=== PATIENT | male | born 2005 | race Caucasian/White ===

== ENCOUNTER 2023-02-21 21:59 | Emergency (ER) | payer OTHER, SELFPAY ==
[2023-02-21 22:16] VITALS: BP 145/89; PULSE 97; RESP 16; O2SAT 98; BMI 25.3
--- NOTE | 2023-02-21 22:24 | ED.ANXIETY1 ---
HPI - Anxiety General Chief Complaint: Anxiety Stated Complaint: ANXIETY Time Seen by Provider: 02/21/23 22:24 Source: patient Mode of arrival: walk-in History of Present Illness HPI narrative: patient's coming to the Emergency Room for concern of suicidal thoughts he have history of depression taking Lexapro but he mentioned that over the last few days if not helping him, the patient does not have any clear plan at the moment , has has falt affect and denies any other complaints pt mentioned his medciation not helping Review of systems otherwise negative Related Data Home Medications Medication Instructions Recorded Confirmed escitalopram oxalate 20 mg tablet 20 mg PO DAILY 02/21/23 02/21/23 (Lexapro) Allergies Allergy/AdvReac Type Severity Reaction Status Date / Time No Known Drug Allergies Allergy Verified 02/21/23 22:21 Review of Systems ROS Status of ROS 10 or more systems reviewed and unremarkable except as noted in history and below PFS PFS Social History Smoking status: Current every day smoker Exam Narrative Exam Narrative: Nurses notes and vital signs reviewed and patient is not hypoxic. General: Well-appearing and in no apparent distress. Skin: Warm, dry, no pallor noted. No rash. Head: Normocephalic, atraumatic. Neck: Supple, non-tender. Eye: Pupils are equal, round and EOMI. No scleral icterus. Ears, Nose, Mouth, and Throat: TM are clear, no nasal mucosal hypertrophy. Oral mucosa is moist, no posterior oropharynx erythema, uvula is mid-line Cardiovascular: Regular Rate and Rhythm without murmur, gallop or rub. Respiratory: No accessory muscle use or respiratory distress. Lungs are clear to auscultation, no wheezing, rales or rhonchi Chest Wall: no tenderness Back: No midline thoracic or lumbar vertebral tenderness. No CVA tenderness Musculoskeletal: normal ROM, no calf or popliteal tenderness, no lower extremity edema/swelling GI: Abdomen is soft, non-distended. Normal bowel sounds. No masses appreciated. No tenderness to palpation. No rebound, guarding, or rigidity noted. Neurological: A&O x4. No cranial nerve dysfunction observed. No truncal ataxia. Moves all extremities. Sensation intact. Psychiatric: Cooperative and interactive. Normal mood and affect. Constitutional Vital Signs - 24 hr 02/21/23 22:16 Pulse Rate [Monitor] 97 H Respiratory Rate 16 Blood Pressure [Right Arm] 145/89 H Pulse Oximetry 98 Oxygen Delivery Method Room Air Course Vital Signs Vital signs: Vital Signs Pulse Rate 97 H 02/21/23 22:16 Respiratory Rate 16 02/21/23 22:16 Blood Pressure 145/89 H 02/21/23 22:16 Pulse Oximetry 98 02/21/23 22:16 Oxygen Delivery Method Room Air 02/21/23 22:16 Pulse Rate 97 H 02/21/23 22:16 Respiratory Rate 16 02/21/23 22:16 Blood Pressure 145/89 H 02/21/23 22:16 Pulse Oximetry 98 02/21/23 22:16 Oxygen Delivery Method Room Air 02/21/23 22:16 MDM - Anxiety MDM Narrative Medical decision making narrative: EKG showing sinus rhythm no ST elevation or depression pt blood work up with no acute significant pathology and his alcohol level is above two hundred Right now the patient was evaluated by [facility] psych service and accepted by Dr Vigil to be admitted for Major depression disorder pt has sitter at the bedside and awaiting transport Lab Data Labs: Lab Results 02/21/23 02/21/23 02/22/23 Range/Units 22:10 22:31 01:16 WBC 6.8 (4.0-11.0) 10^3/uL RBC 4.93 (4.70-6.10) 10^6/uL Hgb 15.6 (14.0-18.0) g/dL Hct 45.1 (42.0-54.0) % MCV 91.5 (80.0-94.0) fL MCH 31.6 (25.9-34.0) pg MCHC 34.6 (29.9-35.2) g/dL RDW 12.0 (11.0-15.0) % Plt Count 340 (150-450) 10^3/uL MPV 9.6 (9.5-13.5) fL Neut % (Auto) 43.3 (43.0-75.0) % Lymph % (Auto) 42.4 (20.5-60.0) % [place] % (Auto) 8.7 (1.7-12.0) % Eos % (Auto) 4.6 (0.9-7.0) % Baso % (Auto) 0.7 (0.2-2.0) % Neut # (Auto) 3.0 (1.4-6.5) 10^3/uL Lymph # (Auto) 2.9 (1.2-3.8) 10^3/uL [place] # (Auto) 0.6 (0.3-0.8) 10^3/uL Eos # (Auto) 0.3 (0.0-0.7) 10^3/uL Baso # (Auto) 0.1 (0.0-0.1) 10^3/uL Abs Immat Gran (auto) 0.02 (0.00-0.03) 10^3/uL Imm/Tot Granulo (auto) 0.3 (0.0-0.5) % Sodium 138 (136-145) mmol/L Potassium 3.7 (3.5-5.1) mmol/L Chloride 99 (98-107) mmol/L Carbon Dioxide 29.1 (21.0-32.0) mmol/L Anion Gap 13.6 BUN 10.0 (6.4-19.3) mg/dL Creatinine 0.90 (0.70-1.30) mg/dL Est GFR ( Amer) >60 (>=60) Est GFR (Non-Af Amer) >60 (>=60) BUN/Creatinine Ratio 11.1 Glucose 82 (74-106) mg/dL Calcium 9.2 (8.5-10.1) mg/dL Total Bilirubin 0.2 (0.2-1.0) mg/dL AST 59 H (15-37) U/L ALT 96 H (16-63) U/L Alkaline Phosphatase 52 (46-116) U/L Total Protein 8.7 H (6.4-8.2) g/dL Albumin 4.5 (3.4-5.0) g/dL Globulin 4.2 g/dL Albumin/Globulin Ratio 1.1 Salicylates <2.8 (<=19.9) mg/dL Urine Opiates Screen Negative (NEGATIVE) Ur Buprenorphine Scrn Negative (NEGATIVE) Ur Oxycodone Screen Negative (NEGATIVE) Urine Methadone Screen Negative (NEGATIVE) Ur Propoxyphene Screen Negative (NEGATIVE) Acetaminophen <10.0 L (10.0-30.0) ug/mL Ur Barbiturates Screen Negative (NEGATIVE) U Tricyclic Antidepress Negative (NEGATIVE) Ur Phencyclidine Scrn Negative (NEGATIVE) Ur Amphetamines Screen Negative (NEGATIVE) U Methamphetamines Scrn Negative (NEGATIVE) U Benzodiazepines Scrn Negative (NEGATIVE) Urine Cocaine Screen Negative (NEGATIVE) U Cannabinoids Screen Negative (NEGATIVE) Ethanol Quant 205 146 mg/dL 02/22/23 Range/Units 03:09 WBC (4.0-11.0) 10^3/uL RBC (4.70-6.10) 10^6/uL Hgb (14.0-18.0) g/dL Hct (42.0-54.0) % MCV (80.0-94.0) fL MCH (25.9-34.0) pg MCHC (29.9-35.2) g/dL RDW (11.0-15.0) % Plt Count (150-450) 10^3/uL MPV (9.5-13.5) fL Neut % (Auto) (43.0-75.0) % Lymph % (Auto) (20.5-60.0) % [place] % (Auto) (1.7-12.0) % Eos % (Auto) (0.9-7.0) % Baso % (Auto) (0.2-2.0) % Neut # (Auto) (1.4-6.5) 10^3/uL Lymph # (Auto) (1.2-3.8) 10^3/uL [place] # (Auto) (0.3-0.8) 10^3/uL Eos # (Auto) (0.0-0.7) 10^3/uL Baso # (Auto) (0.0-0.1) 10^3/uL Abs Immat Gran (auto) (0.00-0.03) 10^3/uL Imm/Tot Granulo (auto) (0.0-0.5) % Sodium (136-145) mmol/L Potassium (3.5-5.1) mmol/L Chloride (98-107) mmol/L Carbon Dioxide (21.0-32.0) mmol/L Anion Gap BUN (6.4-19.3) mg/dL Creatinine (0.70-1.30) mg/dL Est GFR ( Amer) (>=60) Est GFR (Non-Af Amer) (>=60) BUN/Creatinine Ratio Glucose (74-106) mg/dL Calcium (8.5-10.1) mg/dL Total Bilirubin (0.2-1.0) mg/dL AST (15-37) U/L ALT (16-63) U/L Alkaline Phosphatase (46-116) U/L Total Protein (6.4-8.2) g/dL Albumin (3.4-5.0) g/dL Globulin g/dL Albumin/Globulin Ratio Salicylates (<=19.9) mg/dL Urine Opiates Screen (NEGATIVE) Ur Buprenorphine Scrn (NEGATIVE) Ur Oxycodone Screen (NEGATIVE) Urine Methadone Screen (NEGATIVE) Ur Propoxyphene Screen (NEGATIVE) Acetaminophen (10.0-30.0) ug/mL Ur Barbiturates Screen (NEGATIVE) U Tricyclic Antidepress (NEGATIVE) Ur Phencyclidine Scrn (NEGATIVE) Ur Amphetamines Screen (NEGATIVE) U Methamphetamines Scrn (NEGATIVE) U Benzodiazepines Scrn (NEGATIVE) Urine Cocaine Screen (NEGATIVE) U Cannabinoids Screen (NEGATIVE) Ethanol Quant 84 mg/dL Discharge Plan Discharge Chief Complaint: Anxiety Clinical Impression: Major depressive disorder, Suicidal ideation Patient Disposition: [facility] Time of Disposition Decision: 02:39 Discharge Location: [facility] Discharge location: Psychatric service Condition: Good Mode of Transportation: EMS
--- NOTE | 2023-02-21 22:26 | ECG_ITS ---
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
[2023-02-21 22:49] LABS: Basophils Absolute Auto 0.1 10^3/uL (0.0-0.1); Basophils Percent Auto 0.7 % (0.2-2.0); Eosinophils Absolute Auto 0.3 10^3/uL (0.0-0.7); Eosinophils Percent Auto 4.6 % (0.9-7.0); Hematocrit 45.1 % (42.0-54.0); Hemoglobin 15.6 g/dL (14.0-18.0); Immature Granulocytes Abs Auto 0.02 10^3/uL (0.00-0.03); Immature Granulocytes Pct Auto 0.3 % (0.0-0.5); Lymphocytes Absolute Auto 2.9 10^3/uL (1.2-3.8); Lymphocytes Percent Auto 42.4 % (20.5-60.0); Mean Corpuscular HGB Conc 34.6 g/dL (29.9-35.2); Mean Corpuscular Hemoglobin 31.6 pg (25.9-34.0); Mean Corpuscular Volume 91.5 fL (80.0-94.0); Mean Platelet Volume 9.6 fL (9.5-13.5); Monocytes Absolute Auto 0.6 10^3/uL (0.3-0.8); Monocytes Percent Auto 8.7 % (1.7-12.0); Neutrophils Percent Auto 43.3 % (43.0-75.0); Platelet Count 340 10^3/uL (150-450); Red Blood Count 4.93 10^6/uL (4.70-6.10); White Blood Count 6.8 10^3/uL (4.0-11.0)
[2023-02-21 23:01] LABS: Amphetamine Screen Urine NEGATIVE (NEGATIVE); Barbiturates Screen Urine NEGATIVE (NEGATIVE); Benzodiazepines Screen Urine NEGATIVE (NEGATIVE); Buprenorphine Screen Urine NEGATIVE (NEGATIVE); Cannabinoid Screen Urine NEGATIVE (NEGATIVE); Cocaine Screen Urine NEGATIVE (NEGATIVE); Methadone Screen Urine NEGATIVE (NEGATIVE); Methamphetamines Screen Urine NEGATIVE (NEGATIVE); Opiate Screen Urine NEGATIVE (NEGATIVE); Oxycodone Screen Urine NEGATIVE (NEGATIVE); Phencyclidine Screen Urine NEGATIVE (NEGATIVE); Tricyclic Antidepressant Urine NEGATIVE (NEGATIVE)
[2023-02-21 23:08] LABS: Alanine Aminotransferase 96 U/L (16-63); Albumin Globulin Ratio 1.1; Albumin Level 4.5 g/dL (3.4-5.0); Alkaline Phosphatase 52 U/L (46-116); Aspartate Amino Transferase 59 U/L (15-37); BUN Creatinine Ratio 11.1; Bilirubin Total 0.2 mg/dL (0.2-1.0); Calcium 9.2 mg/dL (8.5-10.1); Carbon Dioxide 29.1 mmol/L (21.0-32.0); Estimated GFR (African America >60 (>=60); Estimated GFR (Non-African Ame >60 (>=60); Ethanol 205 mg/dL; Globulin 4.2 g/dL; Glucose 82 mg/dL (74-106); Salicylate <2.8 mg/dL (<=19.9); Total Protein 8.7 g/dL (6.4-8.2)
[2023-02-21 23:11] LABS: Acetaminophen <10.0 ug/mL (10.0-30.0)
[2023-02-22 00:40] LABS: Anion Gap 13.6; Chloride 99 mmol/L (98-107); Potassium 3.7 mmol/L (3.5-5.1); Sodium 138 mmol/L (136-145)
[2023-02-22 01:33] LABS: Ethanol 146 mg/dL
[2023-02-22 03:34] LABS: Ethanol 84 mg/dL
[2023-02-22 03:57] VITALS: BP 150/80; PULSE 97; RESP 16; TEMP 36.6; O2SAT 98
== END 2023-02-22 04:04 ==
PROVIDERS: Emergency Provider Emergency Medicine
DX: R45.851 Suicidal ideations (principal); F32.9 Major depressive disorder, single episode, unspecified; Z79.899 Other long term (current) drug therapy
CPT/HCPCS: 36415; 80053; 80179; 80307; 80320; 80329; 85025; 93005; 99285